=== PATIENT | male | born 1990 | race Caucasian/White ===

== ENCOUNTER 2017-12-16 21:33 | Emergency (ER) | payer MEDICAID, SELFPAY ==
[2017-12-16 21:35] VITALS: BP 130/72; PULSE 64; RESP 14; TEMP 36.8; O2SAT 98; BMI 25.4
--- NOTE | 2017-12-16 21:51 | RAD_ITS ---
STUDY: X-RAY - UNILATERAL RIBS ( RIGHT ) WITH CHEST REASON FOR EXAM: Male, 27 years old. Rib pain after wrestling. TECHNIQUE - RIBS: 4 view(s) of the ribs. TECHNIQUE - CHEST: PA COMPARISON: None. FINDINGS - RIBS: There is an acute right lateral seventh rib fracture. FINDINGS - CHEST: The lungs are clear and expanded. There is no demonstrated pleural abnormality. Normal size heart. Normal mediastinum and kiah. Normal visualized pulmonary arteries. Normal visualized aortic arch and descending thoracic aorta. Normal visualized thoracic spine. There is no demonstrated abnormality of the visualized soft tissue structures of the upper abdomen. RAD/Ribs Uni Min 3V w/PA Chest IMPRESSION: RIBS: Acute right seventh rib fracture. CHEST: No acute cardiopulmonary process. Electronically Signed: Lennie Robles MD at 22:32 EDT Tel , Service support ,
--- NOTE | 2017-12-16 23:15 | ED.DCSUM_ITS ---
- ER Visit Summary Date of Service: 12/16/17 Chief Complaint: Right rib injury History of Present Illness: The patient is a 27 M who states that one week ago he was wrestling with a friend and he fell onto his right rib. He states that any type of movement and cough and laying down causes pain in the mid axillary line in the mid ribs. He states that occasionally he can feel a pop. He denies any shortness of breath or fevers or sputum production. Physical Examination: Afebrile vital signs are stable Gen: Well-nourished well-developed Head: Normocephalic atraumatic Eyes: Perrl EOMI ENT: TMs clear no rhinorrhea moist mucous membranes Neck: Supple no lymphadenopathy no JVD nontender CVS: Regular rate rhythm no murmurs normal S1-S2 Respiratory: No distress clear to auscultation bilaterally right mid axillary line along ribs 6 8 there is some swelling and tenderness noted. No ecchymosis seen. Abdomen: Soft nontender nondistended normal bowel sounds no masses Back: Nontender Extremity: Nontender no edema Skin: Normal color no rash Neuro: alert orientated ?3 CN II-XII intact normal strength sensation reflexes gait cerebellar Psych: Normal affect normal mood Test Results: Rib series demonstrates an acute seventh rib fracture Emergency Department Course and Treatment: he will be started on Castor. I advised him to start Motrin 800 mg scheduled 3 times a day for the next 7 days. He should follow-up with primary care. Impression: 1. Right seventh rib fracture This note was generated with [employer] dictation software. It may contain incorrect words, spelling, and punctuation that were not noted in review of the chart prior to signing ED Disposition - Plan for ED Patient: Disposition: Home or Assisted Living Chief Complaint: Other, Pain/Inj Instructions: Rib Fracture (Broken Rib) Prescriptions: Hydrocodone/Acetaminophen [Castor 5-325 Tablet] 1 - 2 ea PO 4X/DAY PRN PRN 5 Days #20 tab PRN Reason: Pain Referrals: Flor Patel MD [STAFF PHYSICIAN] - 1-2 Weeks
[2017-12-16] MEDS: HYDROcodone Bitartrate/Apap 5/325 Tablet PO (23:27)
[2017-12-16 23:28] VITALS: BP 130/70; PULSE 87; RESP 18; O2SAT 96
== END 2017-12-16 23:28 | disposition home or self-care (01) ==
PROVIDERS: Emergency Provider Emergency Medicine
DX: S22.31XA Fracture of one rib, right side, initial encounter for closed fracture (principal); W19.XXXA Unspecified fall, initial encounter; Y93.83 Activity, rough housing and horseplay; Y92.9 Unspecified place or not applicable; Y99.9 Unspecified external cause status; Z72.0 Tobacco use
CPT/HCPCS: 71101; 99282